=== PATIENT | female | born 1970 | race Caucasian/White ===

== ENCOUNTER → 2017-02-18 | Outpatient (CLI) | payer BC | LOC: WC.BC 14:58 | DX: Z12.31 Encounter for screening mammogram for malignant neoplasm of breast (principal) | CPT/HCPCS: 77063; G0202 ==

== ENCOUNTER 2017-04-05 17:50 | Emergency (ER) | payer OTHER, BC ==
[~2017-04-05] VITALS: Ht 160 cm; Wt 87.3 kg
--- OUTSIDE RECORDS SUMMARY | 2017-04-05 17:54 | XMS REPORT | Continuity of Care Document ---
Author Author [facility] Address Unknown Phone Unavailable Support Name Relationship Address Phone MARTA MARTINEZ Luis GARCIA Caregiver [address] [place] [phone] Unavailable ISIS CAMPBELL MD Caregiver [address] [place] [id number] Unavailable SHONA TYLER Next Of Kin [address] [phone] Insurance Providers Guarantor MariahKavonmegan Ingris Address [address] [phone] Email [email or web address] Payer [facility] Policy Number [id number] Subscriber's Name Kisha Tyler Relationship 18 Self Group Number [id number] Chief Complaint and Reason for Visit Chief Complaint Vaccine Reason for Visit Influenza vaccine administered Problems Active Problems Medical Problem Onset Date Status Cough Unknown Acute INCREASED HEART RATE, COUGH Unknown Acute Increased Heart Rate Unknown Acute Past Problems Medical Problem Onset Date Influenza vaccine administered Unknown Medications Current Home Medications Medication Dose Units Route Directions Days Qty Instructions Start Date None 07/28/10 Social History Social History Problem Response Recorded Date/Time Onset Date Status Hx Substance Use No 12/06/2013 10:02pm Not Applicable Not Applicable Hx Alcohol Use No 12/06/2013 10:02pm Not Applicable Not Applicable Hospital Discharge Instructions No hospital discharge instructions. Plan of Care Discharge Date 09/30/16 1:06pm Disposition 01 DISCHARGED HOME, SELF-CARE Condition at Discharge Stable Prescriptions See Medication Section Referrals ISIS CAMPBELL MD Address: [address] [place] [address] [phone] Functional Status No functional status results. Allergies, Adverse Reactions, Alerts Allergen Type Severity Reaction Status Last Updated Penicillin Allergy Intermediate HIVES Active 12/06/13 Sulfa (Sulfonamide Antibiotics) Allergy Intermediate HIVES Active 12/06/13 Doxycycline Allergy HIVES Active 12/06/13 Amoxicillin Allergy Intermediate HIVES Active 12/06/13 Immunizations Query Response on File Recorded Date/Time Hx Influenza Vaccination Y 08/201312/06/13 10:02pm Hx Pneumococcal Vaccination No 12/06/13 10:02pm Hx Influenza Vaccination Y 08/201312/06/13 10:02pm Vital Signs Acute Vital Signs Vital Response Date/Time Temperature (Fahrenheit) 97.1 deg F (96.8 - 99.1) 09/30/2016 12:57pm Temperature (Calculated Celsius) 36.10540 degrees C (36.0 - 37.3) 09/30/2016 12:57pm Pulse Rate (adult) 67 bpm (60 - 100) 09/30/2016 12:57pm Respiratory Rate 20 breaths/min (10 - 20) 09/30/2016 12:57pm O2 Sat by Pulse Oximetry 98 % (90 - 100) 09/30/2016 12:57pm Results No known relevant diagnostic tests, laboratory data and/or discharge summary. Procedures No known history of procedures. Encounters Encounter Location Arrival/Admit Date Discharge/Depart Date Attending Provider Departed Emergency Room [facility] 09/30/16 12:37pm 09/30/16 1: 06pm MARTA MARTINEZ APRN Recent Diagnosis
--- OUTSIDE RECORDS SUMMARY | 2017-04-05 17:55 | XMS REPORT | Continuity of Care Document ---
Author Author [facility] [place] [facility] Address Unknown Phone Unavailable Allergies Active Description Code Type Severity Reaction Onset Reported/Identified Relationship to Patient Clinical Status Yes DOXYCYCLINE HYCLATE [id number] Drug Allergy N/A N/A Yes PCN Drug Allergy N/A N/A Yes SULFA Drug Allergy N/A N/A Yes Z PACK Drug Allergy N/A N/A Medications Problems Procedures Results Encounters ACCT No. Visit Date/Time Discharge Status Pt. Type Provider Facility Loc./Unit Complaint [id number] 07/24/2016 02:32:34 07/24/2016 02:32:34 ACT Outpatient [id number] 07/24/2016 02:31:54 07/24/2016 02:31:54 ACT Outpatient [id number] 07/24/2016 02:30:20 07/24/2016 02:30:20 ACT Outpatient [id number] 07/24/2016 02:30:19 07/24/2016 02:30:19 ACT Outpatient [id number] 07/24/2016 02:30:01 07/24/2016 02:30:01 ACT Outpatient [id number] 07/24/2016 02:29:57 07/24/2016 02:29:57 ACT Outpatient [id number] 07/24/2016 02:29:56 07/24/2016 02:29:56 ACT Outpatient [id number] 07/24/2016 02:29:55 07/24/2016 02:29:55 ACT Outpatient [id number] 07/24/2016 02:21:53 07/24/2016 02:21:53 ACT Outpatient [id number] 07/23/2016 18:08:01 07/23/2016 18:08:01 ACT Outpatient [id number] 07/23/2016 18:08:00 07/23/2016 18:08:00 ACT Outpatient [id number] 07/23/2016 18:04:52 07/23/2016 18:04:52 ACT Outpatient [id number] 06/28/2015 12:28:05 06/28/2015 12:28:07 DIS Outpatient [id number] 06/27/2015 08:45:31 06/27/2015 23:59:59 CLS Outpatient [id number] 06/27/2015 08:02:40 06/27/2015 23:59:59 CLS Outpatient [id number] 06/27/2015 08:53:19 06/27/2015 08:53:20 DIS Outpatient [id number] 06/27/2015 08:50:25 06/27/2015 08:50:26 DIS Outpatient [id number] 06/27/2015 08:05:37 06/27/2015 08:05:38 DIS Outpatient [id number] 11/04/2014 08:25:37 11/04/2014 08:25:37 DIS Outpatient [id number] 10/27/2014 09:55:38 10/27/2014 23:59:59 CLS Outpatient [id number] 10/26/2014 17:12:43 10/26/2014 23:59:59 CLS Outpatient [id number] 10/26/2014 16:00:13 10/26/2014 23:59:59 CLS Outpatient [id number] 10/26/2014 16:00:08 10/26/2014 23:59:59 CLS Outpatient [id number] 10/26/2014 14:33:46 10/26/2014 23:59:59 CLS Outpatient [id number] 10/26/2014 13:21:32 10/26/2014 23:59:59 CLS Outpatient [id number] 10/26/2014 13:17:34 10/26/2014 23:59:59 CLS Outpatient [id number] 10/26/2014 13:17:33 10/26/2014 23:59:59 CLS Outpatient [id number] 10/26/2014 16:00:12 10/26/2014 16:00:12 DIS Outpatient [id number] 10/26/2014 15:59:46 10/26/2014 15:59:46 DIS Outpatient [id number] 10/26/2014 14:29:08 10/26/2014 14:29:09 DIS Outpatient [id number] 07/23/2016 17:29:14 Document Registration [id number] 07/23/2016 17:29:08 Document Registration [id number] 07/23/2016 17:26:00 Document Registration [id number] 06/28/2015 09:17:14 Document Registration [id number] 06/27/2015 08:53:22 Document Registration [id number] 06/27/2015 08:18:00 Document Registration [id number] 11/04/2014 19:34:41 Document Registration [id number] 11/01/2014 06:48:21 Document Registration [id number] 10/26/2014 13:25:00 Document Registration
[2017-04-05 17:57] VITALS: Ht 160 cm; Wt 87.3 kg
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
--- OUTSIDE RECORDS SUMMARY | 2017-04-05 18:27 | XMS REPORT | Continuity of Care Document ---
Author Author [facility] Address Unknown Phone Unavailable Allergies Active Description Code Type Severity Reaction Onset Reported/Identified Relationship to Patient Clinical Status Yes DOXYCYCLINE HYCLATE [id number] Drug Allergy N/A N/A Yes PCN Drug Allergy N/A N/A Yes SULFA Drug Allergy N/A N/A Yes Z PACK Drug Allergy N/A N/A Medications Problems Procedures Results Encounters ACCT No. Visit Date/Time Discharge Status Pt. Type Provider Facility Loc./Unit Complaint [id number] 07/24/2016 02:32:34 07/24/2016 02:32:34 ACT Outpatient [id number] 07/24/2016 02:31:54 07/24/2016 02:31:54 ACT Outpatient [id number] 07/24/2016 02:30:20 07/24/2016 02:30:20 ACT Outpatient [id number] 07/24/2016 02:30:19 07/24/2016 02:30:19 ACT Outpatient [id number] 07/24/2016 02:30:01 07/24/2016 02:30:01 ACT Outpatient [id number] 07/24/2016 02:29:57 07/24/2016 02:29:57 ACT Outpatient [id number] 07/24/2016 02:29:56 07/24/2016 02:29:56 ACT Outpatient [id number] 07/24/2016 02:29:55 07/24/2016 02:29:55 ACT Outpatient [id number] 07/24/2016 02:21:53 07/24/2016 02:21:53 ACT Outpatient [id number] 07/23/2016 18:08:01 07/23/2016 18:08:01 ACT Outpatient [id number] 07/23/2016 18:08:00 07/23/2016 18:08:00 ACT Outpatient [id number] 07/23/2016 18:04:52 07/23/2016 18:04:52 ACT Outpatient [id number] 06/28/2015 12:28:05 06/28/2015 12:28:07 DIS Outpatient [id number] 06/27/2015 08:45:31 06/27/2015 23:59:59 CLS Outpatient [id number] 06/27/2015 08:02:40 06/27/2015 23:59:59 CLS Outpatient [id number] 06/27/2015 08:53:19 06/27/2015 08:53:20 DIS Outpatient [id number] 06/27/2015 08:50:25 06/27/2015 08:50:26 DIS Outpatient [id number] 06/27/2015 08:05:37 06/27/2015 08:05:38 DIS Outpatient [id number] 11/04/2014 08:25:37 11/04/2014 08:25:37 DIS Outpatient [id number] 10/27/2014 09:55:38 10/27/2014 23:59:59 CLS Outpatient [id number] 10/26/2014 17:12:43 10/26/2014 23:59:59 CLS Outpatient [id number] 10/26/2014 16:00:13 10/26/2014 23:59:59 CLS Outpatient [id number] 10/26/2014 16:00:08 10/26/2014 23:59:59 CLS Outpatient [id number] 10/26/2014 14:33:46 10/26/2014 23:59:59 CLS Outpatient [id number] 10/26/2014 13:21:32 10/26/2014 23:59:59 CLS Outpatient [id number] 10/26/2014 13:17:34 10/26/2014 23:59:59 CLS Outpatient [id number] 10/26/2014 13:17:33 10/26/2014 23:59:59 CLS Outpatient [id number] 10/26/2014 16:00:12 10/26/2014 16:00:12 DIS Outpatient [id number] 10/26/2014 15:59:46 10/26/2014 15:59:46 DIS Outpatient [id number] 10/26/2014 14:29:08 10/26/2014 14:29:09 DIS Outpatient [id number] 07/23/2016 17:29:14 Document Registration [id number] 07/23/2016 17:29:08 Document Registration [id number] 07/23/2016 17:26:00 Document Registration [id number] 06/28/2015 09:17:14 Document Registration [id number] 06/27/2015 08:53:22 Document Registration [id number] 06/27/2015 08:18:00 Document Registration [id number] 11/04/2014 19:34:41 Document Registration [id number] 11/01/2014 06:48:21 Document Registration [id number] 10/26/2014 13:25:00 Document Registration
--- NOTE | 2017-04-05 18:33 | NUR ---
XRY PORTABLE AT BEDSIDE.
[2017-04-05] MEDS ORDERED: IBUP200C62 PO (18:42)
--- NOTE | 2017-04-05 18:44 | NUR ---
STATUS PT STATES THAT PAIN IS LATERALLY UNDER R KNEE IN A BAND LIKE FASHION, INCREASED PAIN WITH ACTIVITY. PT STATES SOMETIMES PAIN RADIATES DOWNWARD IF SHE IS ON HER FEET ALOT. PT STATES THAT IF SHE IS OFF HER FEET FOR A WHILE, THE PAIN WILL GO AWAY COMPLETELY. PT REPORTS INTERMITTENT TINGLING TO R KNEE. PT AMBULATE WITHOUT DIFFICULTY.
--- NOTE | 2017-04-05 18:55 | NUR ---
GROUP LEADER SEMICONDUCTOR TESTING N. NOLD GROUP LEADER SEMICONDUCTOR TESTING AT BEDSIDE.
[2017-04-05] MEDS ORDERED: IBUP-1547 PO (18:59)
[2017-04-05 19:20] VITALS: BP 130/68; PULSE 78; RESP 16; TEMP 98.3; O2SAT 99
--- NOTE | 2017-04-05 19:20 | NUR ---
DISMISS PT AMBULATORY, GAIT STEADY, ACCOMPANIED BY .
--- NOTE | 2017-04-07 09:44 | DI ---
Indication: ITS.REASON: right knee pain PROCEDURE: KNEE RIGHT 3 VIEWS: Encounter: Initial Comparison: None Findings: There is no acute fracture, dislocation or malalignment identified. Impression: No acute osseous abnormality. .
== END 2017-04-05 19:20 | disposition home or self-care (01) ==
LOC: ED 17:50
DX: M25.561 Pain in right knee (principal)